=== PATIENT | female | born 1975 | race Caucasian/White ===

== ENCOUNTER 2020-09-17 22:04 | Inpatient (IN) ==
[2020-09-17] MEDS ORDERED: Dexamethasone IV 4 MG/ML VIAL 1 ml VIAL IV SLOW PU ONE (22:41)
[2020-09-17 23:58] LABS: Activated Partial Thrombo Time 29.5 seconds (26.0-38.0); INR 1.08 (0.82-1.09)
[2020-09-18 00:02] LABS: ABS Lymphocytes 1.6 10^3/ul (1.0-4.8); ABS Monocytes 0.6 10^3/ul (0-0.8); ABS Neutrophils 7.3 10^3/ul (1.5-7.7); Eosinophil % 0.3 %; Hematocrit 37 % (35-47); Lymphocyte % 16.5 %; Mean Corpuscular HGB Conc 33 g/dL (31-36); Mean Corpuscular Hemoglobin 24 pg (27-31); Nucleated Red Blood Cells % 0.1; Platelet Count 269 10^3/uL (150-450); Red Blood Count 5.09 10^6 /uL (3.70-4.87); Red Cell Distribution Width 19 % (10-15); White Blood Count 9.6 10^3/uL (3.5-10.8)
[2020-09-18 00:06] LABS: Albumin 3.8 g/dL (3.2-5.2); Albumin/Globulin Ratio 1.1 (1-3); BUN/Creatinine Ratio 21.7 (8-20); C Reactive Protein 53.22 mg/L (<8.01); Calcium 8.8 mg/dL (8.6-10.3); EGFR African American 68.1 (>60); EGFR Non-African American 56.3 (>60); Globulin 3.6 g/dL (2-4); Influenza A Molecular Negative (Negative); Influenza B Molecular Negative (Negative); Potassium 4.2 mmol/L (3.5-5.0); Total Bilirubin 0.4 mg/dL (0.2-1.0); Total Protein 7.4 g/dL (6.4-8.9)
[2020-09-18 00:09] LABS: Urine Appearance Clear; Urine Bilirubin Negative (Negative); Urine Blood 2+ (Negative); Urine Color Yellow; Urine Glucose 3+(>=500 mg/dL) (Negative); Urine Ketones Negative (Negative); Urine Nitrite Negative (Negative); Urine Protein 1+(30 mg/dL) (Negative); Urine Specific Gravity 1.017 (1.002-1.030); Urine Urobilinogen Negative (Negative)
[2020-09-18 00:25] LABS: Urine Bacteria 1+ (Absent); Urine Red Blood Cell 3+(>10/hpf) (Absent); Urine Squamous Epithelial Cell Present (Absent); Urine White Blood Cell Trace(0-5/hpf) (Absent)
[2020-09-18 00:25] LABS: Ferritin 95.2 ng/mL (11-307)
[2020-09-18] MEDS ORDERED: Dextrose 50% Syringe 50 ml 25 GM/50 ML SYRINGE IV PUSH PRN ×2 (02:39→16:51)
[2020-09-18 02:46] LABS: Microcytosis 1+
[2020-09-18 02:48] LABS: Mean Corpuscular Volume 72 fL (80-97)
[2020-09-18] MEDS ORDERED: Remdesivir 100 mg Vial 200 MG in NS 0.9% 250 ml 210 ML IV ONE (05:00)
[2020-09-18 06:59] LABS: ABS Lymphocytes 0.9 10^3/ul (1.0-4.8); ABS Monocytes 0.2 10^3/ul (0-0.8); ABS Neutrophils 5.4 10^3/ul (1.5-7.7); Hematocrit 36 % (35-47); Hemoglobin 11.4 g/dL (12.0-16.0); Lymphocyte % 13.8 %; Mean Corpuscular HGB Conc 32 g/dL (31-36); Mean Corpuscular Hemoglobin 23 pg (27-31); Mean Corpuscular Volume 73 fL (80-97); Platelet Count 246 10^3/uL (150-450); Red Cell Distribution Width 18 % (10-15); White Blood Count 6.5 10^3/uL (3.5-10.8)
[2020-09-18 07:15] LABS: BUN/Creatinine Ratio 24.5 (8-20); Calcium 8.7 mg/dL (8.6-10.3); EGFR African American 74.6 (>60); EGFR Non-African American 61.7 (>60)
[2020-09-18] MEDS: CMCS: Roflumilast 500 mcg TAB (NF) PO SCH (08:59)
[2020-09-18] MEDS: NF: Empaglifozin 10 mg TAB (NF) PO SCH (08:59)
[2020-09-18] MEDS ORDERED: Insulin GLARGINE 100 un/ml 10 ml VIAL SUBCUT SCH (09:00)
[2020-09-18] MEDS: Fluticasone NASAL SPRAY 50MCG 16 gm SPRAY BTL INTRANASAL SCH (09:04)
[2020-09-18] MEDS: Enoxaparin 80 MG/0.8 ML SYR SUBCUT SCH ×2 (09:06→21:41)
[2020-09-18] MEDS: Albuterol HFA INHALER 8 gm MDI INH PRN (09:42)
[2020-09-18] MEDS: Mometasone/Formoter 200/5 MDI INH SCH ×2 (09:43→19:16)
[2020-09-18] MEDS: SPIRIVA Respimat (tiotropium) 2.5 mcg/inh Inhaler INH SCH (09:43)
[2020-09-18] MEDS ORDERED: Insulin GLARGINE 100 un/ml 10 ml VIAL SUBCUT ONE (15:06)
[2020-09-19 06:26] LABS: Hematocrit 35 % (35-47); Hemoglobin 11.4 g/dL (12.0-16.0); Mean Corpuscular HGB Conc 32 g/dL (31-36); Mean Corpuscular Hemoglobin 23 pg (27-31); Mean Corpuscular Volume 72 fL (80-97); Mean Platelet Volume 6.9 fL (7.4-10.4); Platelet Count 269 10^3/uL (150-450); Red Blood Count 4.88 10^6 /uL (3.70-4.87); Red Cell Distribution Width 18 % (10-15); White Blood Count 7.6 10^3/uL (3.5-10.8)
[2020-09-19] MEDS: Mometasone/Formoter 200/5 MDI INH SCH ×2 (08:28→19:32)
[2020-09-19] MEDS: Albuterol HFA INHALER 8 gm MDI INH PRN (08:28)
[2020-09-19] MEDS: SPIRIVA Respimat (tiotropium) 2.5 mcg/inh Inhaler INH SCH (08:28)
[2020-09-19] MEDS: Insulin GLARGINE 100 un/ml 10 ml VIAL SUBCUT SCH (08:52)
[2020-09-19] MEDS: Fluticasone NASAL SPRAY 50MCG 16 gm SPRAY BTL INTRANASAL SCH (08:53)
[2020-09-19] MEDS: Enoxaparin 80 MG/0.8 ML SYR SUBCUT SCH ×2 (08:53→21:44)
[2020-09-19] MEDS: CMCS: Roflumilast 500 mcg TAB (NF) PO SCH (08:54)
[2020-09-19] MEDS: Remdesivir 100 mg Vial 100 MG in NS 0.9% 250 ml 230 ML IV SCH (08:54)
[2020-09-19] MEDS: NF: Empaglifozin 10 mg TAB (NF) PO SCH (08:55)
[2020-09-19] MEDS ORDERED: Sulfamethox/Trimethoprim DS TAB 800/160 mg PO SCH (21:00)
[2020-09-19] MEDS ORDERED: Amoxicillin/Clavul 875/125 TAB (Augmentin 875 tab) PO SCH (21:00)
[2020-09-19] MEDS: Nitrofurantoin (monohydrate/macrocrystals) 100 mg CAP PO SCH (21:43)
[2020-09-20] MEDS: SPIRIVA Respimat (tiotropium) 2.5 mcg/inh Inhaler INH SCH (07:34)
[2020-09-20] MEDS: Mometasone/Formoter 200/5 MDI INH SCH ×2 (07:34→21:17)
[2020-09-20] MEDS: Insulin GLARGINE 100 un/ml 10 ml VIAL SUBCUT SCH (09:49)
[2020-09-20] MEDS: Enoxaparin 80 MG/0.8 ML SYR SUBCUT SCH ×2 (09:49→21:20)
[2020-09-20] MEDS: CMCS: Roflumilast 500 mcg TAB (NF) PO SCH (09:50)
[2020-09-20] MEDS: Nitrofurantoin (monohydrate/macrocrystals) 100 mg CAP PO SCH ×2 (09:51→21:15)
[2020-09-20] MEDS: Remdesivir 100 mg Vial 100 MG in NS 0.9% 250 ml 230 ML IV SCH (09:53)
[2020-09-20] MEDS: NF: Empaglifozin 10 mg TAB (NF) PO SCH (09:54)
[2020-09-20] MEDS: Fluticasone NASAL SPRAY 50MCG 16 gm SPRAY BTL INTRANASAL SCH (09:55)
[2020-09-20] MEDS ORDERED: Ondansetron 4 mg VIAL 2 MG/ML 2 ml VIAL IV PRN (13:15)
[2020-09-20 17:58] LABS: BUN/Creatinine Ratio 32.4 (8-20); Calcium 9.2 mg/dL (8.6-10.3); EGFR African American 64.6 (>60); EGFR Non-African American 53.4 (>60); Potassium 4.4 mmol/L (3.5-5.0)
[2020-09-20] MEDS: Albuterol HFA INHALER 8 gm MDI INH PRN (21:19)
[2020-09-21 06:46] LABS: BUN/Creatinine Ratio 37.6 (8-20); EGFR African American 87.9 (>60); EGFR Non-African American 72.7 (>60); Potassium 3.7 mmol/L (3.5-5.0)
[2020-09-21] MEDS: SPIRIVA Respimat (tiotropium) 2.5 mcg/inh Inhaler INH SCH (08:46)
[2020-09-21] MEDS: Mometasone/Formoter 200/5 MDI INH SCH ×2 (08:46→21:44)
[2020-09-21] MEDS: Albuterol HFA INHALER 8 gm MDI INH PRN ×2 (08:46→21:45)
[2020-09-21] MEDS: Remdesivir 100 mg Vial 100 MG in NS 0.9% 250 ml 230 ML IV SCH (09:37)
[2020-09-21] MEDS: Enoxaparin 80 MG/0.8 ML SYR SUBCUT SCH ×2 (09:37→21:43)
[2020-09-21] MEDS: Nitrofurantoin (monohydrate/macrocrystals) 100 mg CAP PO SCH ×2 (09:37→21:53)
[2020-09-21] MEDS: CMCS: Roflumilast 500 mcg TAB (NF) PO SCH (09:37)
[2020-09-21] MEDS: Fluticasone NASAL SPRAY 50MCG 16 gm SPRAY BTL INTRANASAL SCH (09:38)
[2020-09-21] MEDS: Insulin GLARGINE 100 un/ml 10 ml VIAL SUBCUT SCH (09:38)
[2020-09-21] MEDS: NF: Empaglifozin 10 mg TAB (NF) PO SCH (09:38)
[2020-09-22] MEDS: Mometasone/Formoter 200/5 MDI INH SCH (07:26)
[2020-09-22] MEDS: SPIRIVA Respimat (tiotropium) 2.5 mcg/inh Inhaler INH SCH (07:26)
[2020-09-22] MEDS: Albuterol HFA INHALER 8 gm MDI INH PRN (07:26)
[2020-09-22] MEDS: Nitrofurantoin (monohydrate/macrocrystals) 100 mg CAP PO SCH (09:27)
[2020-09-22] MEDS: NF: Empaglifozin 10 mg TAB (NF) PO SCH (09:30)
[2020-09-22] MEDS: Enoxaparin 80 MG/0.8 ML SYR SUBCUT SCH (09:31)
[2020-09-22] MEDS: Insulin GLARGINE 100 un/ml 10 ml VIAL SUBCUT SCH (09:31)
[2020-09-22] MEDS: Fluticasone NASAL SPRAY 50MCG 16 gm SPRAY BTL INTRANASAL SCH (09:32)
[2020-09-22] MEDS: Remdesivir 100 mg Vial 100 MG in NS 0.9% 250 ml 230 ML IV SCH (09:33)
[2020-09-22] MEDS: CMCS: Roflumilast 500 mcg TAB (NF) PO SCH (09:34)
[2020-09-22 11:25] VITALS: BP 127/71
== END 2020-09-22 15:29 | disposition home or self-care (01) ==
LOC: ED 22:04 → MED 22:04
PROVIDERS: ADMIT Internal Medicine; ATTEND Internal Medicine